=== PATIENT | male | born 1935 ===

== ENCOUNTER 2018-08-03 20:53 | Emergency (ER) | payer MEDICARE, BC ==
[2018-08-03 21:29] VITALS: BMI 30.2
[2018-08-03] MEDS ORDERED: TraMADol/Apap 37.5/325 mg Tab PO STA (21:29)
--- NOTE | 2018-08-03 21:32 | ED PDOC ---
Arrival/HPI - General Chief Complaint: High Blood Pressure Time Seen by Provider: 08/03/18 21:07 Historian: Patient - History of Present Illness Narrative History of Present Illness (Text): 08/03/18 21:33 83 year old male, with no significant past medical history, presents to the emergency department with lower left back and left leg pain, for 1 week. Patient informs he went to the emergency department at [facility] on Thursday for this pain. Patient states he was given steroid injection and Motrin. Patient states pain felt better at the time, and came back 24 hours ago. Patient also informs having elevated blood pressure today simultaneously with pain. Patient states his readings at home were all about 224/110. Patient denies any fevers, chills, headache, dizziness, chest pain, shortness of breath, cough, abdominal pain, nausea, vomiting, diarrhea, neck pain, or any other complaint. Time/Duration: 1 week Symptom Course: Unchanged Context: Home Past Medical History - Provider Review Nursing Documentation Reviewed: Yes - Infectious Disease Hx of Infectious Diseases: None - Cardiac Hx Hypertension: Yes Hx Pacemaker: No - Neurological Hx Paralysis: No - Hematological/Oncological Hx Blood Transfusions: (UNKNOWN) Hx Blood Transfusion Reaction: No - Musculoskeletal/Rheumatological Hx Musculoskeletal Disorders: No - Psychiatric Hx Emotional Abuse: No Hx Physical Abuse: No Hx Substance Use: No - Anesthesia Hx Anesthesia Reactions: (UNKNOWN) Hx Malignant Hyperthermia: No - Suicidal Assessment Feels Threatened In Home Enviroment: No Family/Social History - Physician Review Nursing Documentation Reviewed: Yes Family/Social History: No Known Family HX Smoking Status: Never Smoked Hx Alcohol Use: Yes (WINE) Frequency of alcohol use: Socially Hx Substance Use: No Allergies/Home Meds Allergies/Adverse Reactions: Allergies No Known Allergies Allergy (Verified 11/14/15 13:51) Home Medications: Home Meds Medication Instructions Recorded Confirmed Fluvastatin Actavis 80 mg PO QPM 11/14/15 11/16/15 Lisinopril-Hctz 20-12.5 Mg Tab 1 tab PO QAM 11/14/15 11/16/15 Review of Systems - Physician Review All systems were reviewed & negative as marked: Yes - Review of Systems Constitutional: absent: Fevers, Night Sweats Respiratory: absent: SOB, Cough Cardiovascular: absent: Chest Pain Gastrointestinal: absent: Abdominal Pain, Diarrhea, Nausea, Vomiting Musculoskeletal: Back Pain (radiating from left lower back to left leg). absent: Neck Pain Neurological: absent: Headache, Dizziness Physical Exam Vital Signs Reviewed: Yes Blood Pressure: Hypertensive Pulse: Regular Appearance: Positive for: Well-Appearing, Non-Toxic, Comfortable Pain Distress: None Mental Status: Positive for: Alert and Oriented X 3 - Systems Exam Head: Present: Atraumatic, Normocephalic Pupils: Present: PERRL Extroacular Muscles: Present: EOMI Conjunctiva: Present: Normal Mouth: Present: Moist Mucous Membranes Neck: Present: Normal Range of Motion Respiratory/Chest: Present: Clear to Auscultation, Good Air Exchange. No: Respiratory Distress, Accessory Muscle Use Cardiovascular: Present: Regular Rate and Rhythm, Normal S1, S2. No: Murmurs Abdomen: No: Tenderness, Distention, Peritoneal Signs Back: Present: Normal Inspection Upper Extremity: Present: Normal Inspection. No: Cyanosis, Edema Lower Extremity: Present: Normal Inspection. No: Edema Neurological: Present: Speech Normal Skin: Present: Warm, Dry, Normal Color. No: Rashes Psychiatric: Present: Alert, Oriented x 3, Normal Insight, Normal Concentration Medical Decision Making ED Course and Treatment: 08/03/18 21:38 Impression: 83 year old male presents with left lower back and left leg pain. Plan: -- CT Lumbar spine -- Catapres -- Ultram -- Reassess and disposition Prior Visits: Notes and results from previous visits were reviewed. Progress Notes: 08/04/18 00:11 CT Lumbar Spine without intravenous contrast History Pain. Comparison None. Technique Axial images of the lumbar spine without intravenous contrast enhancement. Coronal and sagittal reformats generated. Findings There is no fracture visualized. The paraspinal soft tissues are unremarkable. There are no lytic or blastic lesions. Grade I anterolisthesis of L5 over S1 measures 3 mm. There is multilevel degenerative spondylosis present, and with anterior and posterior marginal osteophytosis and endplate sclerosis. Evaluation of individual levels presents the following: At L5-S1, broad-based disc herniation is seen measures up to 4 mm. Superimposed bulge is present. There is severe bilateral foraminal stenosis and mild canal stenosis. Bilateral hypertrophic facet disease is seen. At L4-L5, broad-based herniated disc is seen noted across the disc space. There is severe bilateral foraminal stenosis and akvwxdla-tg-kwtjry canal stenosis. Bilateral hypertrophic facet disease and ligamentum flavum hypertrophy contributes. At L3-L4, 3 mm bulging is seen with spurring. There is moderate bilateral foraminal stenosis. Canal is moderately stenotic. Bilateral hypertrophic facet disease is seen. At L2-L3, there is a broad-based herniated disc is seen noted. There is posterior longitudinal ligament calcification present. Superimposed bulge is seen. There is umbnbfbg-[id number] bilateral foraminal stenosis and wlmmwots-fr-pwflnu canal stenosis. Bilateral hypertrophic facet disease and ligamentum flavum hypertrophy contributes. L1-L2 level is unremarkable Diffuse atherosclerotic changes are present. Impression 1. Grade I anterolisthesis of L5 over S1. 2. At L5-S1, broad-based disc herniation measures up to 4 mm. Superimposed bulge is present. Severe bilateral foraminal stenosis and mild canal stenosis. Bilateral hypertrophic facet disease. 3. At L4-L5, broad-based herniated disc across the disc space. Severe bilateral foraminal stenosis and kwngxhdy-ct-wcmlsh canal stenosis. Bilateral hypertrophic facet disease and ligamentum flavum hypertrophy contributes. 4. At L3-L4, 3 mm bulging is seen with spurring. Moderate bilateral foraminal stenosis. Canal is moderately stenotic. Bilateral hypertrophic facet disease. 5. At L2-L3, broad-based herniated disc. Posterior longitudinal ligament calcification. Superimposed bulge is seen. Ujcuanps-hq-oitftr bilateral foraminal stenosis and qnwuzseu-fc-asdsnn canal stenosis. Bilateral hypertrophic facet disease and ligamentum flavum hypertrophy contributes. - RAD Interpretation Radiology Orders: 08/03/18 21:29 LUMBAR SPINE W/O CONTRAST [CT] Stat - EKG Interpretation EKG Interpretation (Text): 08/03/18 22:34 rsr rate 70 nssts changes - Medication Orders Current Medication Orders: Discontinued Medications Clonidine HCl (Catapres) 0.1 mg PO STAT STA Stop: 08/03/18 21:29 Tramadol/Acetaminophen (Ultracet 37.5/325 Mg) 1 tab PO ONCE STA Stop: 08/03/18 21:30 - Scribe Statement The provider has reviewed the documentation as recorded by the Roge Mercado Provider Scribe Attestation: All medical record entries made by the Scribe were at my direction and personally dictated by me. I have reviewed the chart and agree that the record accurately reflects my personal performance of the history, physical exam, medical decision making, and the department course for this patient. I have also personally directed, reviewed, and agree with the discharge instructions and disposition. Disposition/Present on Arrival - Present on Arrival Any Indicators Present on Arrival: No History of DVT/PE: No History of Uncontrolled Diabetes: No Urinary Catheter: No History of Decub. Ulcer: No History Surgical Site Infection Following: None - Disposition Have Diagnosis and Disposition been Completed?: Yes Diagnosis: Lumbar radiculopathy, Sciatica Disposition: HOME/ ROUTINE Disposition Time: 01:15 Condition: IMPROVED Discharge Instructions (ExitCare): Sciatica, Radiculopathy Prescriptions: oxyCODONE/Acetaminophen [Percocet 5/325 mg Tab] 1 ea PO QID #8 tab Referrals: Bartolome Dent MD [Primary Care Provider] - Follow up with primary Zachary Yanez MD [Staff Provider] - Follow up with primary Forms: [employer] ([place]amese)
[2018-08-04] MEDS ORDERED: Oxycodone/Acetaminophen 5/325 mg Tab PO STA (00:43)
[2018-08-04 01:17] VITALS: BP 138/83; PULSE 68; RESP 17; TEMP 98.2; O2SAT 98
--- NOTE | 2018-08-04 10:13 | CARD ---
APPROVED REPORT Date of service: 08/03/2018 EKG Measurement Heart [id number] <Conclusion> NSR Nonspecific ST and T wave abnormality Abnormal ECG
--- NOTE | 2018-08-04 10:14 | CT ---
Date of service: 08/03/2018 PROCEDURE: CT Lumbar Spine without contrast HISTORY: back pain COMPARISON: None available. TECHNIQUE: Axial computed tomography images were obtained of the lumbar spine without the use of intravenous contrast. Coronal and sagittal reformatted images were created and reviewed. Radiation dose: Total exam DLP = 1017.46 mGy-cm. This CT exam was performed using one or more of the following dose reduction techniques: Automated exposure control, adjustment of the mA and/or kV according to patient size, and/or use of iterative reconstruction technique. FINDINGS: VERTEBRAE: Unremarkable. No fracture. Normal alignment. DISCS/SPINAL CANAL/NEURAL FORAMINA: L1-2: Unremarkable. L2-3: Moderate asymmetric disc bulge to the left with central calcification L3-4: Large asymmetric disc bulge to the left L4-5: Severe facet arthropathy and disc bulging with severe central stenosis. Severe foraminal stenosis. L5-S1: Severe disc bulge and severe facet arthropathy. There is mild anterolisthesis. There is severe bilateral foraminal stenosis PARASPINAL SOFT TISSUES: Unremarkable. OTHER FINDINGS: The report concurs with the preliminary [facility] report IMPRESSION: L2-3: Moderate asymmetric disc bulge to the left with central calcification L3-4: Large asymmetric disc bulge to the left L4-5: Severe facet arthropathy and disc bulging with severe central stenosis. Severe foraminal stenosis. L5-S1: Severe disc bulge and severe facet arthropathy. There is mild anterolisthesis. There is severe bilateral foraminal stenosis
== END 2018-08-04 01:17 | disposition home or self-care (01) ==
LOC: ED 20:53
DX: M54.16 Radiculopathy, lumbar region (principal); M54.30 Sciatica, unspecified side; I10 Essential (primary) hypertension
CPT/HCPCS: 72131; 93005; 96372; 99284; J1100; J1885

== ENCOUNTER 2018-09-20 06:55 | Day surgery (SDC) | payer MEDICARE, BC ==
[2018-09-15 09:45] VITALS: BMI 31.1
[2018-09-20 07:36] VITALS: RESP 20; TEMP 97.9
[2018-09-20] MEDS ORDERED: Iohexol 350mgl/ml 50 ML ONE (08:34)
[2018-09-20] MEDS ORDERED: Lidocaine 2% Inj (20ml) ONE (08:34)
[2018-09-20] MEDS ORDERED: Iodixanol 320 MG/ML 100 ML BOTTLE IV ONE (08:34)
[2018-09-20] MEDS ORDERED: Iodixanol 320 mg/ml 150 ml Bottle IV ONE (08:34)
[2018-09-20] MEDS ORDERED: Midazolam 2 MG/2 ML VIAL ONE (08:50)
[2018-09-20] MEDS ORDERED: Sodium Chloride 0.9% 1,000 ML IV SCH (09:45)
[2018-09-20 14:10] VITALS: O2SAT 94
[2018-09-20 14:14] VITALS: BP 140/70; PULSE 60
--- NOTE | 2018-09-20 19:47 | CARDCATH ---
PROCEDURE DATE: 09/20/2018 CARDIAC CATHETERIZATION REPORT PROCEDURES: 1. Left and right coronary angiography. 2. Left ventriculography. 3. Left heart catheterization. 4. Right femoral arteriography. 5. Angio-Seal deployment. HISTORY: This is an 83-year-old man with known aortic stenosis and worsening exertional dyspnea, referred for cardiac catheterization in anticipation of possible aortic valve intervention. INDICATION: Severe aortic stenosis. FINDINGS: HEMODYNAMICS: The right heart pressures are as follows. The RA mean pressure was 6. The RV pressure was 38/5. The PA pressure of 36/11 and a mean pressure of 18. The pulmonary capillary wedge pressure was 10. The cardiac output by thermodilution method was 4.0 L/minute with a cardiac index of 2.2 L/min/m2. The aortic valve gradient on catheter pullback was 45 mmHg. The calculated aortic valve area was 0.84 cm. CORONARY ANATOMY: 1. The left main stem had mild proximal tapering. 2. Left anterior descending also had very mild proximal tapering. The LAD and its branches had minimal irregularities. 3. Left circumflex artery had mild irregularities. 4. Right coronary artery was dominant with minimal irregularities. LEFT VENTRICULOGRAPHY: A hand injection was performed in the left ventricle revealing normal wall motion with an ejection fraction of 70%. Mitral regurgitation was not assessed. As noted, there was a 45 mm aortic valve gradient noted on catheter pullback. RIGHT FEMORAL ARTERIORRHAPHY: The right femoral arteriogram revealed no evidence of significant disease and appropriate level of arterial puncture. The puncture site was closed with deployment of an Angio-Seal device. CONCLUSION: 1. Severe aortic stenosis. 2. Mild coronary artery disease. 3. Normal LV systolic function. 4. Normal right heart pressures. RECOMMENDATION: Given the above findings, consideration will be given to transcatheter aortic valve replacement and referral to the structural heart disease. Giacomo Velarde MD
== END 2018-09-20 14:15 | disposition home or self-care (01) ==
LOC: CARDIO 06:55 → CATH 06:55
PROVIDERS: ATTEND Internal Medicine Cardiovascular Disease
DX: I35.0 Nonrheumatic aortic (valve) stenosis (principal); I25.10 Atherosclerotic heart disease of native coronary artery without angina pectoris; I10 Essential (primary) hypertension
CPT/HCPCS: 93460; 99152; 99153; C1760; C1769 ×2; C1894; C2629; J1644; J2250; J3010; J7030 ×2; Q9967

== ENCOUNTER 2018-10-14 13:33 | Outpatient (CLI) | payer MEDICARE, BC | END 2018-10-14 13:34 | disposition home or self-care (01) | LOC: RAD 13:34 | DX: R10.9 Unspecified abdominal pain (principal) ==

== ENCOUNTER 2018-10-30 13:54 | Outpatient (CLI) | payer MEDICARE, BC | END 2018-10-30 13:55 | disposition home or self-care (01) | LOC: RAD 13:54 | DX: R10.32 Left lower quadrant pain (principal); K76.89 Other specified diseases of liver ==

== ENCOUNTER 2018-12-24 14:18 | Outpatient (CLI) | payer MEDICARE, BC | END 2018-12-24 14:19 | disposition home or self-care (01) | LOC: RAD 14:18 ==